=== PATIENT | female | born 1955 | race Caucasian/White ===

== ENCOUNTER 2017-06-07 15:24 | Emergency (ER) | payer OTHER ==
[~2017-06-07] VITALS: Ht 165.1 cm; Wt 63.5 kg
--- NOTE | 2017-06-07 15:24 | NUR ---
Patient was BIBA and taken to [facility].
--- NOTE | 2017-06-07 15:26 | NUR ---
PATIENT JOI C/O MIGRAINES x 4 DAYS. HX of MIGRAINES x 10 YEARS MED OF FIORICET WITH CODIENE . PT STATES SHE FEELS NAUSEOUS AND VOMITTED TODAY;SKIN IS PINK/WARM/DRY; AAOX4 WITH EVEN AND STEADY GAIT; LUNGS CLEAR BL; HR EVEN AND REGULAR; PT DENIES ANY FEVER, CP, SOB, OR COUGH AT THIS TIME; PATIENT STATES PAIN OF 6/10 AT THIS TIME;PATIENT POSITIONED FOR COMFORT; HOB ELEVATED; BEDRAILS UP X2; BED DOWN. ER MD MADE AWARE OF PT STATUS.
[2017-06-07 15:28] VITALS: BP 135/76
--- NOTE | 2017-06-07 15:37 | NUR ---
PT WHEELCHAIRED TO OVERFLOW. ERMD AWARE OF PATIENT STATUS.
[2017-06-07] MEDS ORDERED: ACETAMINOPHEN EXTRA STRENGTH 500 MG TAB PO ONE (15:50)
[2017-06-07] MEDS ORDERED: METOCLOPRAMIDE 10 MG/2 ML INJ VIAL IM ONE (15:50)
--- NOTE | 2017-06-07 15:52 | NUR ---
Patient taken to CT via wheelchair.
[2017-06-07 17:00] VITALS: BP 128/83
--- NOTE | 2017-06-07 17:00 | NUR ---
Patient discharged with v/s stable. Written and verbal after care instructions given and explained. Patient alert, oriented and verbalized understanding of instructions. Ambulatory with steady gait. All questions addressed prior to discharge. ID band removed. Patient advised to follow up with PMD. Rx of reglan given. Patient educated on indication of medication including possible reaction and side effects. Opportunity to ask questions provided and answered.
== END 2017-06-07 17:00 | disposition home or self-care (01) ==
LOC: MED 15:24
DX: G43.909 Migraine, unspecified, not intractable, without status migrainosus (principal)
CPT/HCPCS: 70450; 96372; 99284; J2765

== ENCOUNTER 2020-03-09 08:52 | Day surgery (SDC) | payer OTHER, SELFPAY ==
[~2020-03-09] VITALS: Ht 165.1 cm; Wt 58.1 kg
[2020-03-09] MEDS ORDERED: fentaNYL citrate 0.05 MG/ML VIAL ONE (11:19)
[2020-03-09] MEDS ORDERED: MIDAZOLAM 2 MG/2 ML VIAL ONE (11:19)
[2020-03-09] MEDS ORDERED: LIDOCAINE 2% 100 MG/5 ML UJET TP ONE ×2 (11:19→13:55)
[2020-03-09] MEDS ORDERED: fentaNYL citrate 0.05 MG/ML VIAL IM ONE (13:55)
[2020-03-09] MEDS ORDERED: MIDAZOLAM 2 MG/2 ML VIAL IVP ONE (13:55)
== END 2020-03-09 12:50 | disposition home or self-care (01) ==
LOC: MDS 08:52 → MFCC 10:24 → MDS 12:50
PROVIDERS: ATTEND Internal Medicine Gastroenterology
DX: R19.7 Diarrhea, unspecified (principal); K63.5 Polyp of colon; K57.30 Diverticulosis of large intestine without perforation or abscess without bleeding; Z90.710 Acquired absence of both cervix and uterus; Z20.828 Contact with and (suspected) exposure to other viral communicable diseases
CPT/HCPCS: 45385; 88305; J2250; J3010; U0003